=== PATIENT | male | born 1970 | race Hispanic/Latino ===

== ENCOUNTER 2021-01-17 12:01 | Emergency (ER) | payer OTHER ==
[2021-01-17] MEDS ORDERED: MORPHINE 4 MG/1 ML INJ IV ONE (12:20)
--- NOTE | 2021-01-17 12:22 | Emergency Department Report ---
ED General Adult HPI - General Chief complaint: Abdominal Pain Stated complaint: LEFT FLANK PAIN Time Seen by Provider: 01/17/21 12:15 Source: patient Mode of arrival: Stretcher Limitations: No Limitations - History of Present Illness Initial comments: Patient is a 50-year-old male presents emergency room complaints of left flank pain that began suddenly just prior to arrival. He states that he had just gotten off an airplane and then began feeling the pain. He states he then developed nausea, vomiting, diarrhea. He denies any hematuria, dysuria, pain or swelling the testicles, abdominal pain, shortness of breath, cough, hemoptysis, chest pain. Past medical history of hyperlipidemia. No allergies to medications. He endorses occasional alcohol use, tobacco use, marijuana use. He denies any other drug use. Patient was given 30 mg of Toradol, 4 mg of Zofran, and 1 L IV fluids by EMS. - Related Data Previous Rx's Medication Instructions Recorded Last Taken Type Fluconazole [Diflucan TAB] 150 mg PO ONCE 1 Days #3 tablet 01/17/21 Unknown Rx Ketorolac [Toradol] 10 mg PO Q6H PRN #8 tablet 01/17/21 Unknown Rx Promethazine [Phenergan] 25 mg PO Q8HR PRN #10 tab 01/17/21 Unknown Rx Tamsulosin [Flomax] 0.4 mg PO QDAY #10 cap 01/17/21 Unknown Rx traMADoL [Ultram 50 MG tab] 50 mg PO Q6HR PRN #12 tablet 01/17/21 Unknown Rx Allergies Allergy/AdvReac Type Severity Reaction Status Date / Time No Known Allergies Allergy Unverified 01/17/21 12:09 ED Review of Systems ROS: Stated complaint: LEFT FLANK PAIN Other details as noted in HPI Comment: All other systems reviewed and negative ED Past Medical Hx - Medications Home Medications: Home Medications Medication Instructions Recorded Confirmed Last Taken Type Fluconazole [Diflucan TAB] 150 mg PO ONCE 1 Days #3 tablet 01/17/21 Unknown Rx Ketorolac [Toradol] 10 mg PO Q6H PRN #8 tablet 01/17/21 Unknown Rx Promethazine [Phenergan] 25 mg PO Q8HR PRN #10 tab 01/17/21 Unknown Rx Tamsulosin [Flomax] 0.4 mg PO QDAY #10 cap 01/17/21 Unknown Rx traMADoL [Ultram 50 MG tab] 50 mg PO Q6HR PRN #12 tablet 01/17/21 Unknown Rx ED Physical Exam - General Limitations: No Limitations General appearance: alert, other (appears to be in moderate pain) - Head Head exam: Present: atraumatic, normocephalic - Eye Eye exam: Present: normal appearance, EOMI - ENT ENT exam: Present: mucous membranes moist - Respiratory Respiratory exam: Present: normal lung sounds bilaterally. Absent: respiratory distress, wheezes, rales, rhonchi, stridor, chest wall tenderness, accessory muscle use, decreased breath sounds, prolonged expiratory - Cardiovascular Cardiovascular Exam: Present: regular rate, normal rhythm, normal heart sounds. Absent: systolic murmur, diastolic murmur, rubs, gallop - GI/Abdominal GI/Abdominal exam: Present: soft, normal bowel sounds. Absent: distended, tenderness, guarding, rebound, rigid - Back Exam Back exam: Present: CVA tenderness (L). Absent: CVA tenderness (R) - Neurological Exam Neurological exam: Present: alert, oriented X3 - Psychiatric Psychiatric exam: Present: normal affect, normal mood - Skin Skin exam: Present: warm, dry, intact ED Course Vital Signs 01/17/21 01/17/21 01/17/21 12:14 12:15 12:20 Temperature 97.8 F 97.8 F Pulse Rate 67 67 Respiratory 18 18 Rate Blood Pressure 171/94 171/94 Blood Pressure 171/94 [Right] O2 Sat by Pulse 96 98 98 Oximetry 01/17/21 01/17/21 01/17/21 12:21 13:00 13:01 Temperature Pulse Rate 81 Respiratory 17 Rate Blood Pressure 175/98 Blood Pressure 175/98 [Right] O2 Sat by Pulse 98 97 97 Oximetry 01/17/21 01/17/21 15:25 15:26 Temperature Pulse Rate 75 75 Respiratory 17 17 Rate Blood Pressure Blood Pressure 165/89 165/89 [Right] O2 Sat by Pulse 98 98 Oximetry ED Medical Decision Making - Lab Data Result diagrams: 01/17/21 13:17 01/17/21 13:17 Lab Results 01/17/21 01/17/21 01/17/21 Range/Units 13:17 13:17 13:56 WBC 8.9 (4.5-11.0) K/mm3 RBC 4.97 (3.65-5.03) M/mm3 Hgb 15.7 H (11.8-15.2) gm/dl Hct 47.5 H (35.5-45.6) % MCV 96 H (84-94) fl MCH 32 (28-32) pg MCHC 33 (32-34) % RDW 13.8 (13.2-15.2) % Plt Count 226 (140-440) K/mm3 Lymph % (Auto) 6.2 L (13.4-35.0) % [place] % (Auto) 6.3 (0.0-7.3) % Eos % (Auto) 0.1 (0.0-4.3) % Baso % (Auto) 0.4 (0.0-1.8) % Lymph # (Auto) 0.5 L (1.2-5.4) K/mm3 [place]ady # (Auto) 0.6 (0.0-0.8) K/mm3 Eos # (Auto) 0.0 (0.0-0.4) K/mm3 Baso # (Auto) 0.0 (0.0-0.1) K/mm3 Seg Neutrophils % 87.0 H (40.0-70.0) % Seg Neutrophils # 7.7 (1.8-7.7) K/mm3 Sodium 136 L (137-145) mmol/L Potassium 5.1 H (3.6-5.0) mmol/L Chloride 101.0 (98-107) mmol/L Carbon Dioxide 24 (22-30) mmol/L Anion Gap 16 mmol/L BUN 17 (9-20) mg/dL Creatinine 1.2 (0.8-1.3) mg/dL Estimated GFR > 60 ml/min BUN/Creatinine Ratio 14 % Glucose 136 H (75-100) mg/dL Calcium 8.9 (8.4-10.2) mg/dL Total Bilirubin 0.40 (0.1-1.2) mg/dL AST 30 (5-40) units/L ALT 47 (7-56) units/L Alkaline Phosphatase 81 (35-129) units/L Total Protein 6.9 (6.3-8.2) g/dL Albumin 4.1 (3.9-5) g/dL Albumin/Globulin Ratio 1.5 % Lipase 39 (13-60) units/L Urine Color Yellow (Yellow) Urine Turbidity Slightly-cloudy (Clear) Urine pH 5.0 (5.0-7.0) Ur Specific [place] 1.027 (1.003-1.030) Urine Protein 30 mg/dl (Negative) mg/dL Urine Glucose (UA) Neg (Negative) mg/dL Urine Ketones Neg (Negative) mg/dL Urine Blood Lg (Negative) Urine Nitrite Neg (Negative) Urine Bilirubin Neg (Negative) Urine Urobilinogen < 2.0 (<2.0) mg/dL Ur Leukocyte Esterase Neg (Negative) Urine WBC (Auto) < 1.0 (0.0-6.0) /HPF Urine RBC (Auto) > 182.0 (0.0-6.0) /HPF U Epithel Cells (Auto) < 1.0 (0-13.0) /HPF Urine Mucus 2+ /HPF Urine Yeast (Budding) 3+ /HPF Vital Signs 01/17/21 01/17/21 01/17/21 12:14 12:15 12:20 Temperature 97.8 F 97.8 F Pulse Rate 67 67 Respiratory 18 18 Rate Blood Pressure 171/94 171/94 Blood Pressure 171/94 [Right] O2 Sat by Pulse 96 98 98 Oximetry 01/17/21 01/17/21 01/17/21 12:21 13:00 13:01 Temperature Pulse Rate 81 Respiratory 17 Rate Blood Pressure 175/98 Blood Pressure 175/98 [Right] O2 Sat by Pulse 98 97 97 Oximetry 01/17/21 01/17/21 15:25 15:26 Temperature Pulse Rate 75 75 Respiratory 17 17 Rate Blood Pressure Blood Pressure 165/89 165/89 [Right] O2 Sat by Pulse 98 98 Oximetry - Radiology Data Radiology results: report reviewed Ordering Physician: JOHANNE ARREOLA Date of Service: 01/17/21 Procedure(s): CT abdomen pelvis wo con Accession Number(s): [id number] cc: JOHANNE ARREOLA CT ABDOMEN AND PELVIS WITHOUT CONTRAST INDICATION / CLINICAL INFORMATION: left flank pain, n/v/d. TECHNIQUE: Axial CT images were obtained through the abdomen and pelvis without IV contrast. Sagittal and coronal reformatted images. All CT scans at this location are performed using CT dose reduction for ALARA by means of automated exposure control. COMPARISON: None available. FINDINGS: LOWER CHEST: No significant abnormality. LIVER: No significant abnormality. GALLBLADDER: No significant abnormality. BILE DUCTS: No significant abnormality. PANCREAS: No significant abnormality. SPLEEN: No significant abnormality. ADRENALS: No significant abnormality. RIGHT KIDNEY and URETER: No significant abnormality. LEFT KIDNEY and URETER: A 4.3 mm calculus is identified in the proximal left ureter resulting in mild upstream left hydronephrosis. No additional nephrolithiasis is appreciated. There is mild left perinephric stranding. There are 2 soft tissue density nodules near the left renal hilum measuring 1.3 cm and 1.6 cm which are of uncertain etiology. These may represent slightly complex parapelvic cysts. STOMACH and SMALL BOWEL: No significant abnormality. COLON: No significant abnormality. APPENDIX: No significant abnormality. PERITONEUM: No free fluid. No free air. No fluid collection. LYMPH NODES: No significant adenopathy. AORTA and ARTERIES: No significant abnormality. IVC and VEINS: No significant abnormality. URINARY BLADDER: The bladder is partially distended there is rather dense fluid in the bladder which could represent blood products/hematuria. REPRODUCTIVE ORGANS: No significant abnormality. ADDITIONAL FINDINGS: Small umbilical hernia containing fat. SKELETAL SYSTEM: No significant abnormality. IMPRESSION: 4.3 mm calculus in the proximal left ureter, mildly obstructing. Ill-defined nodular densities near the left renal hilum as described. These may represent parapelvic cysts. Consider nonemergent follow-up CT with contrast. Signer Name: Srinath Lloyd Jr, MD Signed: 01/17/2021 2:37 PM Workstation Name: [id number] Transcribed By: TTR Dictated By: SRINATH LLOYD JR, MD Electronically Authenticated By: SRINATH LLOYD JR, MD Signed Date/Time: 01/17/21 143 DD/ 31 TD/TT: - Medical Decision Making Patient is a 50-year-old male presents emergency room complaints of left flank pain that began suddenly just prior to arrival. He states that he had just gotten off an airplane and then began feeling the pain. He states he then dev eloped nausea, vomiting, diarrhea. He denies any hematuria, dysuria, pain or swelling the testicles, abdominal pain, shortness of breath, cough, hemoptysis, chest pain. Past medical history of hyperlipidemia. No allergies to medications. He endorses occasional alcohol use, tobacco use, marijuana use. He denies any other drug use. Patient was given 30 mg of Toradol, 4 mg of Zofran, and 1 L IV fluids by EMS. Vitals are stable. On exam patient has left CVA tenderness. UA shows many red blood cells. Labs are stable. CT abdomen pelvis without contrast 4.3 mm calculus in the proximal left ureter, mildly obstructing. Ill-defined nodular densities near the left renal hilum as described. These may represent parapelvic cysts. Consider nonemergent follow-up CT with contrast. Patient given morphine while in the emergency department and symptoms significantly improved. Discussed all findings with patient and patient was given his CT report. Discussed the importance of primary care and urology follow-up. Discussed return precautions. Advised patient please take medication as prescribed. Increase your water intake. Follow-up with your primary care doctor. Follow-up with a urologist. Return to emergency room for any new or worsening symptoms. Critical care attestation.: If time is entered above; I have spent that time in minutes in the direct care of this critically ill patient, excluding procedure time. ED Disposition Clinical Impression: Nephrolithiasis, Nodule of kidney, Flank pain, Yeast detected Disposition: 01 HOME / SELF CARE / HOMELESS Is pt being admited?: No Does the pt Need Aspirin: No Condition: Stable Instructions: Kidney Stones, [id number] Additional Instructions: please take medication as prescribed. Increase your water intake. Follow-up with your primary care doctor. Follow-up with a urologist. Return to emergency room for any new or worsening symptoms. Prescriptions: Fluconazole [Diflucan TAB] 150 mg PO ONCE 1 Days #3 tablet Tamsulosin [Flomax] 0.4 mg PO QDAY #10 cap Promethazine [Phenergan] 25 mg PO Q8HR PRN #10 tab PRN Reason: vomiting Ketorolac [Toradol] 10 mg PO Q6H PRN #8 tablet PRN Reason: Pain, Moderate (4-6) traMADoL [Ultram 50 MG tab] 50 mg PO Q6HR PRN #12 tablet PRN Reason: Pain , Severe (7-10) Referrals: PRIMARY ALVIN, [Primary Care Provider] - 2-3 Days SNOW ALURA MD [Staff Physician] - 2-3 Days Time of Disposition: 14:51 Print Language: [place] ISLAND[place]
[2021-01-17 14:05] LABS: Alanine Aminotransferase 47 units/L (7-56); Albumin 4.1 g/dL (3.9-5); BUN/Creatinine Ratio 14; Blood Urea Nitrogen 17 mg/dL (9-20); Calcium 8.9 mg/dL (8.4-10.2); Hemolysis Index 29
[2021-01-17 14:13] LABS: Basophils % (Auto) 0.4 % (0.0-1.8); Eosinophils % (Auto) 0.1 % (0.0-4.3); Hematocrit 47.5 % (35.5-45.6); Hemoglobin 15.7 gm/dl (11.8-15.2); Lymphocytes # (Auto) 0.5 K/mm3 (1.2-5.4); Lymphocytes % (Auto) 6.2 % (13.4-35.0); Mean Corpuscular HGB Conc 33 % (32-34); Mean Corpuscular Volume 96 fl (84-94); Monocytes # (Auto) 0.6 K/mm3 (0.0-0.8); Monocytes % (Auto) 6.3 % (0.0-7.3); Platelet Count 226 K/mm3 (140-440); Red Blood Count 4.97 M/mm3 (3.65-5.03); Red Cell Distribution Width 13.8 % (13.2-15.2)
[2021-01-17 14:14] LABS: Bilirubin,Urine NEG (Negative); Blood,Urine LG (Negative); Color,Urine Yellow (Yellow); Mucus,Urine 2+ /HPF; Urobilinogen,Urine < 2.0 mg/dL (<2.0)
[2021-01-17 14:15] LABS: RBC,Urine > 182.0 /HPF (0.0-6.0); WBC,Urine < 1.0 /HPF (0.0-6.0)
--- NOTE | 2021-01-17 14:42 | Cat Scan Report ---
CT ABDOMEN AND PELVIS WITHOUT CONTRAST INDICATION / CLINICAL INFORMATION: left flank pain, n/v/d. TECHNIQUE: Axial CT images were obtained through the abdomen and pelvis without IV contrast. Sagittal and khoury l reformatted images. All CT scans at this location are performed using CT dose reduction for ALARA b y means of automated exposure control. COMPARISON: None available. FINDINGS: LOWER CHEST: No significant abnormality. LIVER: No significant abnormality. GALLBLADDER: No significant abnormality. BILE DUCTS: No significant abnormality. PANCREAS: No significant abnormality. SPLEEN: No significant abnormality. ADRENALS: No significant abnormality. RIGHT KIDNEY and URETER: No significant abnormality. LEFT KIDNEY and URETER: A 4.3 mm calculus is identified in the proximal left ureter resulting in mild upstream left hydronephrosis. No additional nephrolithiasis is appreciated. There is mild left perin ephric stranding. There are 2 soft tissue density nodules near the left renal hilum measuring 1.3 cm and 1.6 cm which are of uncertain etiology. These may represent slightly complex parapelvic cysts. STOMACH and SMALL BOWEL: No significant abnormality. COLON: No significant abnormality. APPENDIX: No significant abnormality. PERITONEUM: No free fluid. No free air. No fluid collection. LYMPH NODES: No significant adenopathy. AORTA and ARTERIES: No significant abnormality. IVC and VEINS: No significant abnormality. URINARY BLADDER: The bladder is partially distended there is rather dense fluid in the bladder which could represent blood products/hematuria. REPRODUCTIVE ORGANS: No significant abnormality. ADDITIONAL FINDINGS: Small umbilical hernia containing fat. SKELETAL SYSTEM: No significant abnormality. IMPRESSION: 4.3 mm calculus in the proximal left ureter, mildly obstructing. Ill-defined nodular densities near the left renal hilum as described. These may represent parapelvic cysts. Consider nonemergent follow-up CT with contrast. Signer Name: Srinath Lloyd Jr, MD Signed: 01/17/2021 2:37 PM Workstation Name: [id number]
[2021-01-17 15:26] VITALS: BP 165/89
== END 2021-01-17 15:27 | disposition home or self-care (01) ==
LOC: ED 12:01
DX: N20.0 Calculus of kidney (principal)
CPT/HCPCS: 36415; 74176; 80053; 81001; 83690; 85025; 96374; 99284; J2270